=== PATIENT | female | born 1960 | race Caucasian/White ===

== ENCOUNTER → 2020-08-15 | Outpatient (CLI) | payer OTHER ==
[~2020-08-15] MED LIST: ASPIRIN CHEWABL81 MG PO; BEE POLLEN550 MG PO; BREWER'S YEAST500 MG PO; BUPROPION HCL100 MG PO; BUSPIRONE HCL15 MG PO; CIPRO500 MG PO; COLESTID1 GM PO; CYCLOBENZAPRINE10 MG PO; DULCOLAX10 MG PR; ELAVIL 25 MG TA25 MG PO; ENULOSE10 GM/15 M PO; FISH OIL 1,0001 EACH PO; GABAPENTIN600 MG PO; KLONOPIN TAB 00.5 MG PO; LEXAPRO20 MG PO; LINZESS145 MCG PO; LIPITOR TAB 2020 MG PO; LORTAB 7.5-3251 EACH PO; LYRICA100 MG PO; METRONIDAZOLE250 MG PO; MIRALAX17 GM PO; NAPROXEN 250 M250 MG PO; NEXIUM40 MG PO; NORCO 5-325 TA1 EACH PO; SINGULAIR10 MG PO; TENORMIN 25 MG25 MG PO; TURMERIC PO; VOLTAREN100 GM TP; WELLBUTRIN SR150 MG PO; XYZAL5 MG PO; ZANTAC150 MG PO
== END ==
LOC: KOH-I 13:50
DX: M79.601 Pain in right arm (principal); M25.511 Pain in right shoulder
CPT/HCPCS: 73030; 73060

== ENCOUNTER → 2020-08-30 | Outpatient (CLI) | payer OTHER | LOC: CT 08:39 | DX: K57.20 Diverticulitis of large intestine with perforation and abscess without bleeding (principal); K63.89 Other specified diseases of intestine | CPT/HCPCS: 36415; 82565; Q9967 ==

== ENCOUNTER → 2021-03-28 | Outpatient (CLI) | payer OTHER ==
[~2021-03-28] MED LIST changes: +AIMOVIG AU140 MG/1 M SQ; +IMITREX100 MG PO; +LIPITOR TAB 1010 MG PO; -LIPITOR TAB 2020 MG PO
== END ==
LOC: MAMO 07:59
DX: Z12.31 Encounter for screening mammogram for malignant neoplasm of breast (principal)
CPT/HCPCS: 77063; 77067

== ENCOUNTER → 2021-04-10 | Outpatient (CLI) | payer OTHER ==
[2021-04-10 11:18] LABS: HEMOGLOBIN 14.1 gm/dl (12.3-15.3); RED BLOOD COUNT 4.37 M/UL (4.00-5.10); WHITE BLOOD COUNT 6.7 K/UL (4.5-11.0)
== END ==
LOC: OPSV2 09:54
PROVIDERS: Obstetrics & Gynecology
DX: Z01.818 Encounter for other preprocedural examination (principal); N81.10 Cystocele, unspecified; N39.9 Disorder of urinary system, unspecified; I10 Essential (primary) hypertension
CPT/HCPCS: 36415; 85025; 93005

== ENCOUNTER → 2021-06-28 | Outpatient (CLI) | payer OTHER ==
[~2021-06-28] MED LIST changes: +FLUOXETINE HCL20 M1 PO; +HYDROCODON-ACE1 EAC2 PO; +NARCAN4 MG; +VITAMIN C PO; +VITAMIN D325 MC6 PO; +ZINC PO
[2021-06-28 13:32] LABS: HEMOGLOBIN 13.3 gm/dl (12.3-15.3); RED BLOOD COUNT 4.17 M/UL (4.00-5.10); WHITE BLOOD COUNT 4.6 K/UL (4.5-11.0)
== END ==
LOC: OPSV2 08:00
PROVIDERS: Obstetrics & Gynecology
DX: Z01.818 Encounter for other preprocedural examination (principal); N81.10 Cystocele, unspecified
CPT/HCPCS: 36415; 71046; 80053; 85025; 93005

== ENCOUNTER 2021-07-03 09:57 | Day surgery (SDC) | payer OTHER ==
[~2021-07-03] VITALS: Ht 175.3 cm; Wt 68.9 kg
[~2021-07-03 09:57] MED LIST changes: -ZINC PO
[2021-07-03] MEDS ORDERED: ZINC PO (11:06)
[2021-07-03 16:19] LABS: HEMOGLOBIN 9.3 gm/dl (12.3-15.3)
[2021-07-03 18:21] LABS: HEMOGLOBIN 11.1 gm/dl (12.3-15.3)
[2021-07-04 06:52] LABS: HEMOGLOBIN 9.2 gm/dl (12.3-15.3)
== END 2021-07-05 12:47 | disposition home or self-care (01) ==
LOC: OR 09:57 → MED SURG 4 09:57 → OR 11:45 → MED SURG 4 16:48 → OR 17:50
PROVIDERS: Obstetrics & Gynecology
DX: N99.3 Prolapse of vaginal vault after hysterectomy (principal); L98.9 Disorder of the skin and subcutaneous tissue, unspecified; N39.3 Stress incontinence (female) (male); R22.2 Localized swelling, mass and lump, trunk; I10 Essential (primary) hypertension; G43.909 Migraine, unspecified, not intractable, without status migrainosus; F41.9 Anxiety disorder, unspecified; F32.9 Major depressive disorder, single episode, unspecified; E55.9 Vitamin D deficiency, unspecified; N36.41 Hypermobility of urethra; E78.5 Hyperlipidemia, unspecified; Z88.0 Allergy status to penicillin; Z88.5 Allergy status to narcotic agent; Z98.51 Tubal ligation status; Z90.49 Acquired absence of other specified parts of digestive tract
CPT/HCPCS: 36415; 81001; 85014; 85018; 86850; 86900; 86901; 87077; 87086; 87186; C1769; C1771; J0690; J1170; J2250; J2270; J2405; J2704; J2795; J3010; J7120

== ENCOUNTER 2021-07-14 14:15 | Emergency (ER) | payer OTHER ==
[~2021-07-14 14:15] MED LIST changes: +ZINC PO
[2021-07-14 16:06] LABS: HEMOGLOBIN 10.7 gm/dl (12.3-15.3); RED BLOOD COUNT 3.37 M/UL (4.00-5.10); WHITE BLOOD COUNT 6.6 K/UL (4.5-11.0)
[2021-07-14] MEDS ORDERED: OMNICEF 300 MG300 MG PO (19:27)
== END 2021-07-14 19:50 | disposition home or self-care (01) ==
LOC: ER1 14:15
PROVIDERS: Nurse Practitioner
DX: N39.0 Urinary tract infection, site not specified (principal); E78.5 Hyperlipidemia, unspecified; I10 Essential (primary) hypertension; Z90.710 Acquired absence of both cervix and uterus
CPT/HCPCS: 80053; 81001; 83605; 83690; 85025; 87040; 96374; 99284; J2270; J7030; Q9967

== ENCOUNTER 2021-08-01 14:28 | Emergency (ER) | payer OTHER ==
[~2021-08-01 14:28] MED LIST changes: +OMNICEF 300 MG300 MG PO
[2021-08-01 16:19] LABS: HEMOGLOBIN 11.6 gm/dl (12.3-15.3); RED BLOOD COUNT 3.65 M/UL (4.00-5.10); WHITE BLOOD COUNT 7.4 K/UL (4.5-11.0)
[2021-08-01] MEDS ORDERED: CEFUROXIME500 MG PO (18:29)
[2021-08-01] MEDS ORDERED: ZOFRAN4 MG PO (18:29)
== END 2021-08-01 18:40 | disposition home or self-care (01) ==
LOC: ER1 14:28
PROVIDERS: Preventive Medicine Occupational Medicine
DX: N39.0 Urinary tract infection, site not specified (principal); I10 Essential (primary) hypertension; Z20.822 Contact with and (suspected) exposure to COVID-19
CPT/HCPCS: 80053; 81001; 83605; 83690; 85025; 85652; 86140; 87077; 87086; 87186; 96374; 96375; 99284; J1170; J2405; Q9967; U0002

== ENCOUNTER 2021-12-19 09:34 | Emergency (ER) | payer OTHER ==
[~2021-12-19 09:34] MED LIST changes: +CEFUROXIME500 MG PO; +ZOFRAN4 MG PO
[2021-12-19 11:01] LABS: HEMOGLOBIN 12.3 gm/dl (12.3-15.3); RED BLOOD COUNT 3.97 M/UL (4.00-5.10); WHITE BLOOD COUNT 4.4 K/UL (4.5-11.0)
[2021-12-19 11:48] LABS: BUN/CREATININE RATIO 13 (0-10)
[2021-12-19] MEDS ORDERED: PROTONIX40 MG PO (13:44)
[2021-12-19] MEDS ORDERED: OMNICEF 300 MG300 MG PO (13:46)
== END 2021-12-19 14:10 | disposition home or self-care (01) ==
LOC: ER1 09:34
PROVIDERS: Physician Assistant
DX: N39.0 Urinary tract infection, site not specified (principal); K26.9 Duodenal ulcer, unspecified as acute or chronic, without hemorrhage or perforation; K29.70 Gastritis, unspecified, without bleeding; I10 Essential (primary) hypertension; F41.9 Anxiety disorder, unspecified; Z90.49 Acquired absence of other specified parts of digestive tract
CPT/HCPCS: 80053; 81001; 83690; 85025; 87077; 87086; 87186; 96374; 96375; 99284; C9113; J2270; J2405; Q9967